=== PATIENT | male | born 1945 | race Caucasian/White ===

== ENCOUNTER 2021-04-26 13:43 | Inpatient (IN) | payer OTHER ==
[~2021-04-26] VITALS: Ht 175.3 cm; Wt 80.7 kg
[2021-04-26 14:21] LABS: BASOPHILS # (AUTO) 0.1 K/uL (0.0-0.2); BASOPHILS % (AUTO) 1.3 % (0.0-2.0); EOSINOPHILS % (AUTO) 0.6 % (0.0-6.0); HEMATOCRIT 45 % (39-51); HEMOGLOBIN 14.8 g/dL (13.5-17.5); LYMPHOCYTES # (AUTO) 0.6 K/uL (0.8-4.8); LYMPHOCYTES % (AUTO) 11.6 % (20.0-44.0); MEAN CORPUSCULAR HGB CONC 33 g/dl (31.0-36.0); MEAN CORPUSCULAR VOLUME 102 fL (80-96); MONOCYTES # (AUTO) 0.3 K/uL (0.1-1.30); NEUTROPHILS # (AUTO) 3.8 K/uL (1.8-8.9); NEUTROPHILS % (AUTO) 80.5 % (43.0-81.0); PLATELET COUNT (AUTO) 131 K/uL (150-450); RED BLOOD CELL COUNT(AUTO) 4.39 MIL/uL (4.5-6.0); WHITE BLOOD COUNT (AUTO) 4.7 K/uL (4.3-11.0)
[2021-04-26] MEDS ORDERED: Thiamine 100 MG in IV D5W 50 ML IV SCH (14:30)
[2021-04-26 14:31] LABS: CALCIUM, SERUM 8.2 mg/dL (8.5-10.1); CARBON DIOXIDE 23 mmol/L (21-32); CHLORIDE 105 mmol/L (98-107); CREATININE 0.7 mg/dL (0.6-1.3); GLUCOSE 86 mg/dL (74-106); POTASSIUM 3.8 mmol/L (3.5-5.1); SODIUM SERUM 142 mmol/L (136-145); UREA NITROGEN, BLOOD 10 mg/dL (7-18)
[2021-04-26 14:38] LABS: ALANINE AMINOTRANSFERASE 112 U/L (12-78); ALBUMIN 3.9 g/dL (3.4-5.0); ALCOHOL, BLOOD 343 mg/dL (0-0); ALKALINE PHOSPHATASE 159 U/L (46-116); ASPARTATE AMINOTRANSFERASE 148 U/L (15-37); BILIRUBIN,DIRECT 0.2 mg/dL (0.0-0.2); BILIRUBIN,TOTAL 0.5 mg/dL (0.2-1.0); TOTAL PROTEIN, SERUM 7.6 g/dL (6.4-8.2)
[2021-04-26 14:39] LABS: ACETAMINOPHEN 0 ug/ml (10-30)
[2021-04-26 14:44] LABS: BILIRUBIN,URINE NEGATIVE (NEGATIVE); COLOR,URINE YELLOW (YELLOW); LEUKOCYTE ESTERASE ,URINE NEGATIVE (NEGATIVE); NITRITE, URINE NEGATIVE (NEGATIVE); PROTEIN,URINE NEGATIVE (NEGATIVE); UGLUCOSE NEGATIVE (NEGATIVE); UROBILINOGEN,URINE 0.2 EU/dL (0.2)
[2021-04-26 14:51] LABS: RBC,URINE 0-2 /HPF (0-2)
[2021-04-26 14:52] LABS: BACTERIA,URINE Few /HPF (None Seen); SQUAMOUS EPITHELIAL CELL,UR Few /HPF (None Seen); WBC,URINE 0-2 /HPF (0-3)
--- NOTE | 2021-04-26 14:58 | NUR ---
ALEX AND [employer] FROM PT'S HOME TO ER BED 12.AWKAE, ALERT BUT INTOXICATED SMELLS OF ALCOHOL. BROUGHT IN ON A 5150 HOLD FOR GRAVE DISABILITY AND DANGER TO HIMSELF. [T HAS BEEN DRINKING ALOT AND A POINT WHERE HE GET INJURED AND OBTAINED A WOUND ON HIS RFA. PT WAS ALSO REPORTED BEING DEPRESSED AND HURTING HIMSELF BY HITTING HIS HEAD. PT IS COOPERATIVE AND COMPLAINT.
--- NOTE | 2021-04-26 15:53 | NUR ---
covid negative per lab
--- NOTE | 2021-04-26 16:03 | NUR ---
CALL FROM MARGOT DALEY, UNABLE TO ADMIT AT THIS TIME BECAUSE OF LACK OF SITTER
[2021-04-26] MEDS ORDERED: IV NS 0.9% 1,000 ML IV SCH (16:30)
[2021-04-26] MEDS ORDERED: MAG HYDROX/AL HYDROX/SIMETH 30 ML UDC PO PRN (16:30)
[2021-04-26] MEDS ORDERED: ZOLPIDEM TARTRATE 5 MG TABLET PO PRN (16:30)
[2021-04-26] MEDS ORDERED: MAGNESIUM HYDROXIDE 30 ML UDC PO PRN (16:30)
[2021-04-26] MEDS ORDERED: ONDANSETRON HCL/PF 4 MG/2 ML VIAL IVP PRN (16:30)
[2021-04-26] MEDS ORDERED: ACETAMINOPHEN 325 MG TABLET PO PRN (16:30)
[2021-04-26] MEDS ORDERED: PHARMACY ADD 1 AMP MVI TO IVF DAILY ONE BAG XX PRN (16:30)
[2021-04-26] MEDS ORDERED: Z GUARD REMEDY 2 OZ OINT TP PRN (16:30)
--- NOTE | 2021-04-26 19:08 | NUR ---
BED 652-1
--- NOTE | 2021-04-26 19:50 | NUR ---
REPORT GIVEN TO MAAME FOR ANGELA
[2021-04-26 20:00] VITALS: BP_SYST 145; BP_SYST 188; BP_DIAS 48; BP_DIAS 95
--- NOTE | 2021-04-26 20:19 | NUR ---
[facility] AT BEDSIDE W/ ACLS PROTOCOL. NAD NOTED DURING TRANSPORT. PT AMBULATED TO BE W/ SBA ASSIST TO THE BED FROM THE [facility]
[2021-04-26] MEDS ORDERED: Folic acid 1 MG in IV D5W 50 ML IV SCH (21:00)
[2021-04-26] MEDS ORDERED: MVI ADULT 10ML VIAL = 1AMP 10 ML in IV NS 0.9% 1,000 ML IV ONE (21:00)
[2021-04-26] MEDS ORDERED: CLONIDINE HCL 0.1 MG TABLET PO PRN (21:00)
--- NOTE | 2021-04-26 21:55 | NUR ---
MAGNETIC TAPE WINDER NOTES PT ARRIVED TO UNIT ACCOMPANIED BY RN AND EMT VIA GURNEY PT ABLE TO AMBULATE TO BED WITH SOME STAND BY ASSISTANCE. PT A/0 X2-3 PT IN NO DISTRESS OR PAIN AT THIS TIME. PT ABLE TO MAKE NEEDS KNOWN. PT HAS IV ACCES ON THE R HAND 20 G RUNNING NS WITH MINERALS @ 100 ML/HR. PT HAS BRUISE ON THE RIGHT FOREARM AND A WOUND ON THE LEFT FOREARM DRESSING WAS ON THE WOUND PICTURES TAKEN AND WOUND RE DRESSED. PT HAS BILATERAL FOOT NON PITTING EDEMA. PT ORIENTED TO ROOM AND UNIT. SAFETY MEASURES FOLLOWED BED ON LOW POSITION LOCKED. HOB ELEVATED, PT HAS SITTER AT BEDSIDE. PT ON A 5150 HOLD PLACED BY [employer] FOR GRAVE DISABILITY AND DANGER TO SELF. PT IS VERBALIZING SADNESS AT LOSING 3 FAMILY MEMBERS EXPRESSES FEELING LONELY AND NOT WANTING TO BE ALONE. PT REPORTED USE OF ALCOHOL DAILY 1L A DAY FOR THE PAST 2 YEARS. WILL CONTINUE TO MONITOR Q15 CLOSELY WITH THE HELP OF NURSING STAFF.
[2021-04-26 22:00] VITALS: BP 188/95
--- NOTE | 2021-04-26 22:00 | NUR ---
CHIEF PASSENGER SHIP STEWARD/STEWARDESS NOTES PT BLOOD PRESSURE SBP 188/95 DENTAL FINANCIAL COORDINATOR MD MADE AWARE RECEIVE ORDERS NOTED AND CARRIED OUT.
[2021-04-27] VITALS (7 sets, daily range): BP systolic 131–169; BP diastolic 46–85
[2021-04-27] MEDS: LORAZEPAM INJ 2 MG/ML VIAL IV PRN ×2 (02:50→05:20)
[2021-04-27] MEDS: CLONIDINE HCL 0.1 MG TABLET PO PRN (05:58)
--- NOTE | 2021-04-27 06:46 | NUR ---
HOME ATTENDANT NOTES PT A/0 X2-3 PT IN NO DISTRESS OR PAIN AT THIS TIME. PT ABLE TO MAKE NEEDS KNOWN. PT HAS IV ACCES ON THE R HAND 20 G RUNNING NS WITH MINERALS @ 100 ML/HR. PT HAS BRUISE ON THE RIGHT FOREARM AND A WOUND ON THE LEFT FOREARM DRESSING INTACT. PT HAS BILATERAL FOOT NON PITTING EDEMA. SAFETY MEASURES FOLLOWED BED ON LOW POSITION LOCKED. HOB ELEVATED, PT HAS SITTER AT BEDSIDE. PT ON A 5150 HOLD PLACED BY [employer] FOR GRAVE DISABILITY AND DANGER TO SELF. PT HAS NOT VERBALIZED SI/HI FOR THE REST OF THE SHIFT. Q15 MIN PT CHECKS DONE WITH HELP OF STAFF. WILL ENDORSE CRE TO DAY SHIFT NURSE.
[2021-04-27 07:09] LABS: BASOPHILS % (AUTO) 0.4 % (0.0-2.0); EOSINOPHILS % (AUTO) 0.1 % (0.0-6.0); HEMATOCRIT 39 % (39-51); LYMPHOCYTES # (AUTO) 0.2 K/uL (0.8-4.8); LYMPHOCYTES % (AUTO) 5.7 % (20.0-44.0); MEAN CORPUSCULAR HGB CONC 34 g/dl (31.0-36.0); MEAN CORPUSCULAR VOLUME 101 fL (80-96); MONOCYTES # (AUTO) 0.2 K/uL (0.1-1.30); MONOCYTES % (AUTO) 4.9 % (2.0-12.0); NEUTROPHILS # (AUTO) 3.6 K/uL (1.8-8.9); NEUTROPHILS % (AUTO) 88.9 % (43.0-81.0); PLATELET COUNT (AUTO) 91 K/uL (150-450); RED BLOOD CELL COUNT(AUTO) 3.83 MIL/uL (4.5-6.0)
[2021-04-27 07:25] LABS: CALCIUM, SERUM 8.1 mg/dL (8.5-10.1); CREATININE 0.6 mg/dL (0.6-1.3); MAGNESIUM 1.4 mg/dL (1.8-2.4); PHOSPHORUS 3.3 mg/dL (2.5-4.9); POTASSIUM 3.7 mmol/L (3.5-5.1)
--- NOTE | 2021-04-27 07:45 | NUR ---
TELE/RN OPENING NOTES RECEIVED PATIENT ON BED SLEEPING EASILY AROUSAL BY NAME AND LIGHT TOUCH. ALERT AND ORIENTED X 2-3. PATIENT IS IN ROOM AIR SATURATING WELL. PATIENT IN NO APPARENT RESPIRATORY DISTRESS NOTED AT THIS TIME. TELE MONITOR READING SINUS RHYTHM 67 BPM. NO COMPLAINED OF PAIN AT THIS TIME. WILL CONTINUE TO MONITOR.
[2021-04-27] MEDS: Magnesium 1GM/D5W 100ML PREMIX 100 ML IV SCH ×4 (08:58→12:33)
[2021-04-27] MEDS: IV NS 0.9% 1,000 ML IV PRN (09:02)
--- NOTE | 2021-04-27 10:46 | NUR ---
TELE/RN NOTES DR. REBOLLEDO ORDER NPO EXCEPT MEDICATION. NOTED AND CARRIED OUT.
[2021-04-27] MEDS: CHLORDIAZEPOXIDE HCL 5 MG CAPSULE PO SCH ×3 (10:50→16:41)
[2021-04-27] MEDS ORDERED: Thiamine 100 MG in IV D5W 50 ML IV SCH ×2 (14:00→15:00)
--- NOTE | 2021-04-27 14:46 | NUR ---
SS consult: SS Consul for ETOH abuse. The pt. is a 76-year-old male on a 5150 hold for DTS started on 04/26/2021 at 1305. Psych consult ordered. Per EMR, pt. was BIBRA after pt. was trying to find his gun to shoot himself. TIARRA met with pt. bedside. The pt. is A&O X 4. Pt. appears unkempt with dysphoric mood and depressed affect. TIARRA explored pt.s drinking habits. Pt. presents guarded and only wanting to provide limited information. Pt. stated that he began drinking heavily after he got out of the [employer]. Per pt. he currently drinks about 5-6 drinks in the morning and 10 drinks at night. Per pt. his drink of choice is Vodka, Beer, or wine. Pt. denies drug use. TIARRA explored pt.s mental health HX. Pt. denies Hx. of mental illness. pt. denies psychotropic medications. Pt. denies current SI/HI and denies current hallucinations. TIARRA provided pt. with alcohol abuse resources (rehab Tx programs) and pt. accepted resources. Pt. states his support system is his bro-in-law, Collins and could not provide contact info. Pt. states he lives alone at home [[address] [facility] [address]; [phone]]. Pt. stated he is , however, then stated lived elsewhere and refused to provide wifes information. SW will be available as needed. TIARRA provided pt. with the following mental health and addiction resources: ADDICTION RESOURCES For Drugs and Alcohol [facility] Substance Abuse Helpline([facility])-[facility] Outpatient treatment, residential treatment, recovery support for youth and adults [facility] www.actionfamilycounseling.pbsi [facility] Teen programs for drug/alcohol education and support Juhi Chahal Wilcox. Program for adults, sliding scale provides support and education [facility] www.Corimmun.org [place]; Outpatient/residential treatment programs; transition to sober living [facility] www.cri-help.org [place]; Outpatient and residential treatment programs; transition to sober living [facility] Abuse Recovery Mert Tavarez; Outpatient education and supportive programs for teens and adults [facility] www.oasiswomensrecovery.org [place]; Residential treatment and work program for females only [facility] [place] www.[facility].Loandesk [place]: Outpatient/residential treatment program for teens and young adults [facility] www.lifepoint health.org [place], inpatient, outpatient for adults and youth [facility], [facility]. [place]; Outpatient programs and referrals to community residential programs. Alcoholics Anonymous -SFV information and meeting and schedules www.aa-intergroup.org Fj-Qnmc-Uyhhozh https://al-anon.org/ [place] support groups for family of alcoholics. Marijuana Anonymous www.madistrict6.org -sfv listing of meetings Narcotics Anonymous www.na.org SOBER LIVING RESOURCES The Sober Living Network www.soberhousing.net A non-profit agency that provides resources to recovery and sober living homes throughout [facility] Sober Living Homes: A Work in [facility] Recovery Advocates, [place] [facility] Mert Tavarez Womens Sober Living Homes: [facility] [phone] [place], [place] [facility] Coed Sober Living Homes: [facility] Counseling--Outpatient [facility] [address] [facility] [place], [place] [address] (Specializes in in-depth psychotherapy for emotional distress: anxiety, depression, interpersonal conflicts, life transitions, childhood abuse) [facility] [address] [place] [address] (Assist with solving problem marital difficulties, separation & divorce, aging parents, & grief, chronic & terminal illness) [facility] [address] [place] [address] (Deal with loss & grief, anxiety, marital difficulties) Homebound/Mental Health Services [address] [facility] [address] [place] [address] (Provide in-home mental services to people who are incapable of leaving their homes) Organization for Needs of the Elderly Senior Service/Resource Center [address] [place] [address] [facility] [address] [place] [address] PSYCHIATRIC OUTPATIENT SERVICES [facility] Partial Hospitalization and Intensive Outpatient Program (Managed Care and [place] Only)[address] [facility] [phone] [facility] Partial Hospitalization and Outpatient Goiujlo[address] [facility] [address] [place], [place] [phone] [facility] Partial Hospitalization and Outpatient Izviots[address] [place], [place] [phone] [facility] [place] Soq[address] [facility] [address] [place], [place] [phone] [facility] Partial Hospitalization and Outpatient Uvijzzs22512 [facility]Texas [facility] [place], [phone] Crisis and Hotline Telephone Numbers 24-Hour service unless stated [place] Crisis Hotlines: [place] Mental Health/Crisis Line........[phone] Suicide Prevention Center (24 Hours).......[phone] Suicide Prevention Crisis Center.......[phone] (24 Hours) Assaults Against Women Hotline.........176.832.4723 (24 Hours -- [facility]) Women and Children Crisis Usp...........[phone] (24 Hours) Child Abuse Hotline............599.484.6931 [facility] Childrens Services R[facility] Treatment [facility] (24 Hours)..........[phone] Alcoholics Anonymous (24 Hours)..........[phone] Cocaine Anonymous (24 Hours)............[phone] Narcotics Anonymous (24 Hours)..........[phone] [facility] [address] [place] [address] Mental Health Services [facility] [address] [place] [address] Services: Outpatient therapy for children, teens, young adults, adults, older adults, and families; Psychiatric services, medication support Crisis and Hotline Telephone Numbers 24-Hour service unless stated [place] Crisis Hotlines: [facility] Mental Health/Crisis Line........[phone] Suicide Prevention Center (24 Hours).......[phone] Suicide Prevention Crisis Center.......[phone] (24 Hours) Alcoholics Anonymous (24 Hours)..........915.254.4429 National Crisis Hotlines: Alcohol and Drug Helpline - Provides referrals to local facilities where adolescents and adults can seek help. Brief intervention. ROSARIO Helpline [facility] [place] for the Mentally Ill 1-247-036-LTFY National Youth Crisis Hotline [place] [facility]. Provides free information on specific disorders, referral directory to mental health providers, national directory of local mental health associations (M-F, 9-5 EST) National [place] of Mental Health Information Line: Provide sinformation and literature on mental illness by disorder-for professionals and general public.
[2021-04-27] MEDS ORDERED: Folic acid 1 MG in IV D5W 50 ML IV SCH (15:00)
[2021-04-27] MEDS: SERTRALINE HCL 25 MG TABLET PO SCH (16:41)
--- NOTE | 2021-04-27 18:58 | NUR ---
TELE/RN OPENING NOTES PATIENT IS ON BED AWAKE ALERT AND ORIENTED X4. PATIENT IS ON ROOM AIR SATURATING WELL. PATIENT IN NO APPARENT RESPIRATORY DISTRESS NOTED. NO COMPLAINED OF PAIN AT THIS TIME. TELE MONITOR READING SINUS RHYTHM SINUS WITH PVC AND BBB 65 BPM. IV ACCESS AT LEFT HAND #20 G WITH IV FLUID OF NS1L AT 100ML/HR ON AND INFUSING WELL. SEEN AND EXAMINED BY MD WITH ORDERS MADE AND CARRIED OUT. ALL DUE MEDICATIONS WAS GIVEN. SAFETY PRECAUTIONS WAS IN PLACED. BED IN LOWEST POSITION AND LOCKED. MIXER DRY FOOD PRODUCTS UP X2. CALL LIGHT WITHIN REACH. WILL ENDORSED TO PLASTERING SUPERVISOR FOR ANGELA.
--- NOTE | 2021-04-27 20:05 | NUR ---
MS/TELE/RN RECEIVED PATIENT SITTING AT EDGE OF BED WITH SITTER AT BEDSIDE, PATIENT IS AWAKE, ALERT, ORIENTED, CALM AND COMFORTABLE, NO DISTRESS NOTED, WILL MONITOR FOR SAFETY.
[2021-04-28] VITALS: BP 157/85
--- NOTE | 2021-04-28 01:43 | NUR ---
MS/TELE/RN PATIENT IS SLEEPING AT THIS TIME, APPEAR COMFORTABLE, NO SIGNS OF DISTRESS NOTED, SITTER AT BEDSIDE, WILL CONTINUE TO MONITOR.
[2021-04-28] MEDS: IV NS 0.9% 1,000 ML IV PRN ×2 (03:14→14:40)
[2021-04-28 04:00] VITALS: BP 158/82
[2021-04-28 06:17] LABS: BASOPHILS % (AUTO) 0.5 % (0.0-2.0); EOSINOPHILS % (AUTO) 0.9 % (0.0-6.0); HEMATOCRIT 37 % (39-51); HEMOGLOBIN 12.3 g/dL (13.5-17.5); LYMPHOCYTES # (AUTO) 0.3 K/uL (0.8-4.8); LYMPHOCYTES % (AUTO) 8.6 % (20.0-44.0); MEAN CORPUSCULAR HGB CONC 34 g/dl (31.0-36.0); MEAN CORPUSCULAR VOLUME 102 fL (80-96); MONOCYTES # (AUTO) 0.3 K/uL (0.1-1.30); PLATELET COUNT (AUTO) 78 K/uL (150-450); RED BLOOD CELL COUNT(AUTO) 3.61 MIL/uL (4.5-6.0); WHITE BLOOD COUNT (AUTO) 3.7 K/uL (4.3-11.0)
[2021-04-28 06:32] LABS: CALCIUM, SERUM 7.8 mg/dL (8.5-10.1); CREATININE 0.6 mg/dL (0.6-1.3); MAGNESIUM 1.9 mg/dL (1.8-2.4); POTASSIUM 3.4 mmol/L (3.5-5.1)
--- NOTE | 2021-04-28 06:39 | NUR ---
MS/TELE/RN PATIENT IS AWAKE, CALM AND COMFORTABLE, NO DISTRESS NOTED, SITTER AT BEDSIDE, ALL NEEDS ATTENDED AT THIS TIME, WILL CONTINUE TO MONITOR.
--- NOTE | 2021-04-28 08:00 | NUR ---
CORRECTIONAL CORPORAL OPENING NOTES RECEIVED PATIENT LYING IN BED, AWAKE. A/O X3. SITTER AT BEDSIDE. STABLE ON ROOM AIR - NO SOB OR DISTRESS NOTED. PATIENT STATES NO PAIN AT THIS TIME. TELE MONITOR READS SINUS RHYTHM WITH PVC. IV ACCESS TO LEFT HAND #20 - RUNNING NS @ 100ML/HR. SAFETY PRECAUTIONS IN PLACE. CALL LIGHT WITHIN REACH. WILL CONTINUE TO MONITOR.
[2021-04-28] MEDS: POTASSIUM CL. PREMIX PERIPHER. 50 ML IV SCH ×2 (08:46→09:36)
[2021-04-28] MEDS: CHLORDIAZEPOXIDE HCL 5 MG CAPSULE PO SCH ×3 (08:47→16:42)
[2021-04-28] MEDS: THIAMINE HCL 100 MG TABLET PO SCH (10:35)
[2021-04-28] MEDS: FOLIC ACID 1 MG TABLET PO SCH (10:35)
--- NOTE | 2021-04-28 11:31 | NUR ---
WOUND CARE CONSULT: PT PRESENTS WITH RT ARM SKIN TEAR AND BILATERAL ARM DISCOLORATION. RECOMMENDATIONS MADE FOR SKIN PROTECTION AND WOUND CARE. DISCUSSED WITH NURSING STAFF. IN AGREEMENT WITH PLAN OF CARE. Addendum: 04/28/21 at 1131 by JEAN CLAUDE KHAN WNDNU Amended: Links added.
[2021-04-28] MEDS: SERTRALINE HCL 25 MG TABLET PO SCH (16:42)
--- NOTE | 2021-04-28 18:42 | NUR ---
GLYCERIN SUPERVISOR CLOSING NOTES PATIENT CURRENTLY LYING IN BED, AWAKE. A/O X3. SITTER AT BEDSIDE. STABLE ON ROOM AIR - NO SOB OR DISTRESS NOTED. PATIENT STATES NO PAIN AT THIS TIME. TELE MONITOR READS SINUS RHYTHM WITH PVC. IV ACCESS TO LEFT HAND #20 - RUNNING NS @ 100ML/HR. PATIENT TO DISCHARGE TO GPS TOMORROW. SAFETY PRECAUTIONS IN PLACE. CALL LIGHT WITHIN REACH. WILL ENDORSE TO WORKFORCE DEVELOPMENT PROGRAM DIRECTOR NURSE FOR ANGELA.
--- NOTE | 2021-04-28 19:53 | NUR ---
MS RN OPENING PATIENT IN BED. A/OX3. SITTER AT THE BED SIDE. NO S/S OF DISTRESS. NO C/O PAIN AT THIS TIME. IV NS RUNNING @100ML/HR. CHAUFFEUR MOTORBUS READING SR 60'S WITH PVC AND BUNDLE BRANCHES. SAFETY IN PLACE: BED IN LOWEST, LOCKED POSITION; CALL LIGHT WITHIN REACH. WILL CONTINUE TO MONITOR.
[2021-04-28 20:00] VITALS: BP 171/69
[2021-04-28] MEDS: CLONIDINE HCL 0.1 MG TABLET PO PRN (20:51)
--- NOTE | 2021-04-28 20:56 | NUR ---
FITTINGS TIGHTENER NOTES PATIENT BP 171/69 ON RE-CHECK. GIVEN CATAPRES 0.2 MG PRN. WILL REASSESS.
[2021-04-29] VITALS: BP 162/94
[2021-04-29] MEDS: LORAZEPAM INJ 2 MG/ML VIAL IV PRN ×2 (00:06→09:45)
--- NOTE | 2021-04-29 00:06 | NUR ---
CULINARY INSTRUCTOR NOTES PATIENT GIVEN LORAZEPAM 1ML AT THIS TIME. PATIENT VERY ANXIOUS, SHAKY, RESTLESS. WILL CONTINUE TO MONITOR. V/S STABLE.
--- NOTE | 2021-04-29 01:02 | NUR ---
telemetry tech notes patient given ambien at this time per nursing clinical assessment.
[2021-04-29] MEDS: IV NS 0.9% 1,000 ML IV PRN ×2 (01:45→17:20)
[2021-04-29 04:00] VITALS: BP 166/74
--- NOTE | 2021-04-29 07:04 | NUR ---
MS RN CLOSING NOTE PATIENT IN BED. A/OX3. TIMES OF CONFUSION/ COMBATIVE. NO S/S OF APPARENT DISTRESS. IV NS RUNNING @75ML/HR. ALL NEEDS ATTENDED. ALL SCHED MEDS ADMINISTERED. CALL LIGHT WITHIN REACH. WOUND TREATMENT DONE AND DRESSING CHANGED. NO SIGNIFICANT CHANGE SINCE LAST SHIFT. WILL ENDORSE CARE TO AM SHIFT RN.
[2021-04-29 07:07] LABS: BASOPHILS % (AUTO) 0.3 % (0.0-2.0); EOSINOPHILS % (AUTO) 0.3 % (0.0-6.0); HEMATOCRIT 41 % (39-51); HEMOGLOBIN 13.8 g/dL (13.5-17.5); LYMPHOCYTES # (AUTO) 0.2 K/uL (0.8-4.8); LYMPHOCYTES % (AUTO) 3.5 % (20.0-44.0); MEAN CORPUSCULAR HGB CONC 33 g/dl (31.0-36.0); MEAN CORPUSCULAR VOLUME 102 fL (80-96); MONOCYTES # (AUTO) 0.5 K/uL (0.1-1.30); MONOCYTES % (AUTO) 8.3 % (2.0-12.0); NEUTROPHILS # (AUTO) 5.6 K/uL (1.8-8.9); NEUTROPHILS % (AUTO) 87.6 % (43.0-81.0); PLATELET COUNT (AUTO) 90 K/uL (150-450); RED BLOOD CELL COUNT(AUTO) 4.06 MIL/uL (4.5-6.0); WHITE BLOOD COUNT (AUTO) 6.4 K/uL (4.3-11.0)
[2021-04-29 07:38] LABS: CALCIUM, SERUM 8.4 mg/dL (8.5-10.1); CREATININE 0.8 mg/dL (0.6-1.3); POTASSIUM 3.5 mmol/L (3.5-5.1)
[2021-04-29 07:55] LABS: BAND % (MANUAL) 1 % (0.0-5.0); LYMPHOCYTES % (MANUAL) 2 % (16-48); MONOCYTES % (MANUAL) 3 % (0-11.0); NEUTROPHILS % (MANUAL) 94 (42-76)
[2021-04-29] MEDS: CHLORDIAZEPOXIDE HCL 5 MG CAPSULE PO SCH ×3 (09:45→16:57)
[2021-04-29] MEDS: FOLIC ACID 1 MG TABLET PO SCH (09:46)
[2021-04-29] MEDS: THIAMINE HCL 100 MG TABLET PO SCH (09:46)
--- NOTE | 2021-04-29 12:47 | NUR ---
VSS, Pt SR with BBB on tele monitor. Pt has had very noticeable tremors and hallucinations due to ETOH withdrawal. Ativan given per MD orders. Pt resting quietly now.
[2021-04-29] MEDS: SERTRALINE HCL 25 MG TABLET PO SCH (16:57)
--- NOTE | 2021-04-29 17:59 | NUR ---
RN CLOSING NOTE PATIENT IN BED RESTING, NO S/S OF DISTRESS OR SI/HI OBSERVED, SITTER AT BEDSIDE. RESPIRATORY EVEN AND UNLABORED ON ROOM AIR. SKIN IS WARM TO TOUCH KEEP CLEAN/DRY INTACT IV SITE. PATIENT NPO EXCEPT MEDS AND PATIENT TOOK ALL DUE MEDICATIONS WITH COMPLIANCE. KEPT ELEVATED HOB FOR ENSURE AIRWAY AND ASPIRATION PRECAUTION, ALSO LOWEST BED POSITION FOR SAFETY. CALL LIGHT WITHIN REACH, WILL ENDORSE HOUSEKEEPER CAREGIVER.
--- NOTE | 2021-04-29 19:58 | NUR ---
RN NOTES RECEIVED PATIENT IN BED, ALERT/ORIENTED X 3, ROOM AIR, NO COMPLAIN OF PAIN, LETHARGIC, ANSWERS TO SIMPLE QUESTIONS, NPO EXCEPT MEDS, GENERALIZED BUE ECCHYMOSIS, BEING MONITORED FOR ALCOHOL WITHDRAWAL, SITTER AT THE BEDSIDE FOR SAFETY, WILL CONTINUE TO MONITOR.
[2021-04-29 20:00] VITALS: BP 165/88
[2021-04-30 01:01] VITALS: BP 161/78
[2021-04-30] MEDS: CLONIDINE HCL 0.1 MG TABLET PO PRN (01:06)
[2021-04-30 05:03] VITALS: BP 160/92
--- NOTE | 2021-04-30 06:48 | NUR ---
RN NOTES ALERT/ORIENTED X3, ROOM AIR, DENIES PAIN AT THIS TIME, LETHARGIC, AROUSEABLE, SBP 160, GIVEN CLONIDINE X1, TO TRANSFER TO GPS, SITTER AT THE BEDSIDE FOR SAFETY.
--- NOTE | 2021-04-30 07:10 | NUR ---
CUSTOMER SERVICE SALES ASSOCIATE OPENING PATIENT IN BED. A/OX3. SITTER AT THE BED SIDE. NO S/S OF DISTRESS. NO C/O PAIN AT THIS TIME. IV NS RUNNING @100ML/HR. SAFETY IN PLACE: BED IN LOWEST, LOCKED POSITION; CALL LIGHT WITHIN REACH. WILL CONTINUE TO MONITOR.
[2021-04-30 07:20] LABS: BASOPHILS % (AUTO) 0.3 % (0.0-2.0); EOSINOPHILS % (AUTO) 1.6 % (0.0-6.0); HEMATOCRIT 41 % (39-51); HEMOGLOBIN 13.6 g/dL (13.5-17.5); LYMPHOCYTES # (AUTO) 0.4 K/uL (0.8-4.8); LYMPHOCYTES % (AUTO) 5.3 % (20.0-44.0); MEAN CORPUSCULAR HGB CONC 34 g/dl (31.0-36.0); MEAN CORPUSCULAR VOLUME 103 fL (80-96); MONOCYTES # (AUTO) 0.6 K/uL (0.1-1.30); MONOCYTES % (AUTO) 9.3 % (2.0-12.0); NEUTROPHILS # (AUTO) 5.6 K/uL (1.8-8.9); NEUTROPHILS % (AUTO) 83.5 % (43.0-81.0); PLATELET COUNT (AUTO) 92 K/uL (150-450); RED BLOOD CELL COUNT(AUTO) 3.95 MIL/uL (4.5-6.0); WHITE BLOOD COUNT (AUTO) 6.7 K/uL (4.3-11.0)
[2021-04-30 07:28] LABS: CALCIUM, SERUM 7.9 mg/dL (8.5-10.1); CREATININE 0.7 mg/dL (0.6-1.3); POTASSIUM 3.3 mmol/L (3.5-5.1)
[2021-04-30] MEDS: THIAMINE HCL 100 MG TABLET PO SCH (09:04)
[2021-04-30] MEDS: FOLIC ACID 1 MG TABLET PO SCH (09:04)
[2021-04-30] MEDS: CHLORDIAZEPOXIDE HCL 5 MG CAPSULE PO SCH ×3 (09:04→17:30)
[2021-04-30] MEDS: IV NS 0.9% 1,000 ML IV PRN ×2 (09:49→20:56)
[2021-04-30] MEDS ORDERED: POTASSIUM CHLORIDE 20 MEQ TAB.PRT.SR PO SCH (10:30)
[2021-04-30] MEDS: SERTRALINE HCL 25 MG TABLET PO SCH (17:30)
--- NOTE | 2021-04-30 19:00 | NUR ---
MS RN CLOSING NOTE PATIENT IN BED. A/OX3. SITTER AT THE BED SIDE. NO S/S OF DISTRESS. NO C/O PAIN AT THIS TIME. IV NS RUNNING @100ML/HR. SAFETY IN PLACE: BED IN LOWEST, LOCKED POSITION; CALL LIGHT WITHIN REACH. WILL ENDORSE PATIENT FOR CONTINUITY OF CARE
--- NOTE | 2021-04-30 19:40 | NUR ---
MS/RN OPENING NOTE RECEIVED PATIENT SLEEPING IN BED. ALERT AND ORIENTED X 2. ABLE TO MAKE NEEDS KNOWN. NO S/SX OF PAIN NOTED AT THIS TIME. CONTINUES ON ROOM AIR WITH NO S/SX OF RESPIRATORY DISTRESS NOTED. IV ACCESS TO LEFT FOREARM #22G INTACT AND PATENT. CONTINUES ON IV NS 0.9% @ 100ML/HR. PATIENT HAS 1 TO 1 SITTER. CALL LIGHT WITHIN REACH. ASPIRATION, FALL AND SAFETY PRECAUTIONS MAINTAINED. WILL CONTINUE TO MONITOR.
[2021-04-30 20:00] VITALS: BP_SYST 156; BP_SYST 174; BP_DIAS 65
--- NOTE | 2021-04-30 22:02 | NUR ---
MS/RN NOTE PATIENT HAS BEEN NPO EXCEPT MEDS SINCE ADMISSION ON 04/26. ASPIRATION PRECAUTIONS IN PLACE. NOTIFIED LABORER PULLET FARM PLYWOOD LAYUP LINE CORE LAYER MAYELA CARREON WITH NEW ORDER FOR SPEECH EVAL IN AM. ORDER IMPUTED AND CARRIED OUT.
[2021-05-01] MEDS: IV NS 0.9% 1,000 ML IV PRN (05:52)
[2021-05-01 06:37] LABS: BASOPHILS % (AUTO) 0.3 % (0.0-2.0); EOSINOPHILS % (AUTO) 1.6 % (0.0-6.0); HEMATOCRIT 44 % (39-51); HEMOGLOBIN 14.5 g/dL (13.5-17.5); LYMPHOCYTES # (AUTO) 0.4 K/uL (0.8-4.8); LYMPHOCYTES % (AUTO) 7.4 % (20.0-44.0); MEAN CORPUSCULAR HGB CONC 33 g/dl (31.0-36.0); MEAN CORPUSCULAR VOLUME 104 fL (80-96); MONOCYTES # (AUTO) 0.6 K/uL (0.1-1.30); MONOCYTES % (AUTO) 11.1 % (2.0-12.0); NEUTROPHILS # (AUTO) 4.7 K/uL (1.8-8.9); NEUTROPHILS % (AUTO) 79.6 % (43.0-81.0); PLATELET COUNT (AUTO) 101 K/uL (150-450); RED BLOOD CELL COUNT(AUTO) 4.22 MIL/uL (4.5-6.0); WHITE BLOOD COUNT (AUTO) 5.8 K/uL (4.3-11.0)
--- NOTE | 2021-05-01 06:40 | NUR ---
MS/RN CLOSING NOTE PATIENT CURRENTLY SLEEPING IN BED. ALERT AND ORIENTED X 2. ABLE TO MAKE NEEDS KNOWN. NO S/SX OF PAIN NOTED AT THIS TIME. CONTINUES ON ROOM AIR WITH NO S/SX OF RESPIRATORY DISTRESS NOTED. IV ACCESS TO LEFT FOREARM #22G INTACT AND PATENT. CONTINUES ON IV NS 0.9% @ 100ML/HR. PATIENT HAS 1 TO 1 SITTER. CALL LIGHT WITHIN REACH. ASPIRATION, FALL AND SAFETY PRECAUTIONS MAINTAINED. WILL ENDORSE PLAN OF CARE TO ONCOMING SHIFT.
[2021-05-01 07:19] LABS: ALBUMIN 2.9 g/dL (3.4-5.0); BILIRUBIN,TOTAL 1.6 mg/dL (0.2-1.0); CALCIUM, SERUM 8.3 mg/dL (8.5-10.1); CREATININE 0.7 mg/dL (0.6-1.3); MAGNESIUM 1.7 mg/dL (1.8-2.4); POTASSIUM 3.6 mmol/L (3.5-5.1); TOTAL PROTEIN, SERUM 6.1 g/dL (6.4-8.2)
--- NOTE | 2021-05-01 08:04 | NUR ---
m/s press reader: md visit seen and examined by dr. esteban with order to discharge pt to gps unit. pt aware and verbalized understanding. pt remains on 5250. pt still shaking, but less. pt more alert and oriented x3 with forgetfulness. reality orientation provided prn. sitter remains at bedside. will continue to monitor.
[2021-05-01] MEDS ORDERED: Thiamine HCL PO (08:06)
[2021-05-01] MEDS ORDERED: SERT-437 PO ×2 (08:06→13:22)
[2021-05-01] MEDS ORDERED: Folic Acid PO (08:06)
[2021-05-01] MEDS ORDERED: Chlordiazepoxide Hcl PO (08:06)
[2021-05-01 08:27] VITALS: BP 180/94
[2021-05-01] MEDS: CLONIDINE HCL 0.1 MG TABLET PO PRN (08:27)
[2021-05-01] MEDS: FOLIC ACID 1 MG TABLET PO SCH (08:27)
[2021-05-01] MEDS: THIAMINE HCL 100 MG TABLET PO SCH (08:27)
[2021-05-01] MEDS: CHLORDIAZEPOXIDE HCL 5 MG CAPSULE PO SCH (08:27)
[2021-05-01] MEDS: Magnesium 1GM/D5W 100ML PREMIX 100 ML IV SCH ×2 (09:39→10:53)
--- NOTE | 2021-05-01 12:30 | NUR ---
m/s stone fabricator: notes pt unable to sign d'c papers due to hold ([id number]) 2 license staff signed all d'c papers. facesheet given to admitting to admit pt to room 215-1 gps unit. pt has no family given. all valuables returned to pt.
--- NOTE | 2021-05-01 12:40 | NUR ---
m/s maintainer plant: notes report given to portia (katerina) for continuity of care.
--- NOTE | 2021-05-01 12:45 | NUR ---
m/s light rail transit operator: notes h/l removed with tip intact.
--- NOTE | 2021-05-01 13:00 | NUR ---
m/s corporate treasurer: notes brought down to gps unit for geropsych admission via wheelchair with original hold and d'c papers. transfer pt safely from wheelchair to bed.
[2021-05-01] MEDS ORDERED: CLON0.2T PO (13:22)
[2021-05-01] MEDS ORDERED: ACET-868 PO (13:22)
[2021-05-01] MEDS ORDERED: ALLA266C2 TP (13:22)
[2021-05-01] MEDS ORDERED: FOLI0.4T6 PO (13:22)
[2021-05-01] MEDS ORDERED: MAG30ORA PO (13:22)
[2021-05-01] MEDS ORDERED: THIA100T68 PO (13:22)
[2021-05-01] MEDS ORDERED: MAGN400O6 PO (13:22)
[2021-05-01] MEDS ORDERED: ZOLP5TAB8 PO (13:22)
[2021-05-01] MEDS ORDERED: CHLO5CAP3 PO (13:22)
== END 2021-05-01 12:36 | DRG 896 ==
LOC: ER 16:34 → TELE 19:15 → MED 04-30 08:47
PROVIDERS: ADMIT Family Medicine; ATTEND Family Medicine
DX: F10.129 Alcohol abuse with intoxication, unspecified (principal); G93.41 Metabolic encephalopathy; E72.20 Disorder of urea cycle metabolism, unspecified; R45.851 Suicidal ideations; Y90.8 Blood alcohol level of 240 mg/100 ml or more; D69.6 Thrombocytopenia, unspecified; K72.90 Hepatic failure, unspecified without coma; E83.51 Hypocalcemia; F32.9 Major depressive disorder, single episode, unspecified; K70.31 Alcoholic cirrhosis of liver with ascites; D75.89 Other specified diseases of blood and blood-forming organs; I11.0 Hypertensive heart disease with heart failure; I50.9 Heart failure, unspecified; G31.84 Mild cognitive impairment of uncertain or unknown etiology; E83.42 Hypomagnesemia; K76.0 Fatty (change of) liver, not elsewhere classified
CPT/HCPCS: 36415; 71045-TC; 76700-TC; 80048-TC; 80053-TC; 80061-TC; 80076-TC; 81001; 82140-TC; 83735-TC; 84100-TC; 85025-TC; 87081-TC; 93307-TC; C9803; G0378; G0480; J2060; J3411; J3475; J3480; J3490; J7030; J7060

== ENCOUNTER 2021-05-01 13:12 | Inpatient (IN) | payer OTHER ==
[~2021-05-01] VITALS: Ht 175.3 cm; Wt 75.3 kg
[2021-05-01 08:00] VITALS: BP 180/94
[~2021-05-01 13:12] MED LIST: Chlordiazepoxide Hcl PO; Folic Acid PO; SERT-437 PO; Thiamine HCL PO
[2021-05-01] MEDS ORDERED: MAG30ORA PO (13:22)
[2021-05-01] MEDS ORDERED: THIA100T68 PO (13:22)
[2021-05-01] MEDS ORDERED: CLON0.2T PO (13:22)
[2021-05-01] MEDS ORDERED: ZOLP5TAB8 PO (13:22)
[2021-05-01] MEDS ORDERED: FOLI0.4T6 PO (13:22)
[2021-05-01] MEDS ORDERED: ACET-868 PO (13:22)
[2021-05-01] MEDS ORDERED: ALLA266C2 TP (13:22)
[2021-05-01] MEDS ORDERED: SERT-437 PO (13:22)
[2021-05-01] MEDS ORDERED: MAGN400O6 PO (13:22)
[2021-05-01] MEDS ORDERED: CHLO5CAP3 PO (13:22)
[2021-05-01 13:28] VITALS: BP 138/58
[2021-05-01] MEDS ORDERED: BLOOD SUGAR DIAGNOSTIC 1 EACH STRIP IN ONE (13:30)
[2021-05-01] MEDS ORDERED: ACETAMINOPHEN 325 MG TABLET PO PRN ×2 (13:30→21:30)
[2021-05-01] MEDS ORDERED: LORAZEPAM 0.5 MG TABLET PO PRN (13:30)
[2021-05-01] MEDS ORDERED: MAGNESIUM HYDROXIDE 30 ML UDC PO PRN ×2 (13:30→21:30)
[2021-05-01] MEDS ORDERED: ZOLPIDEM TARTRATE 5 MG TABLET PO PRN (13:30)
[2021-05-01] MEDS ORDERED: MAG HYDROX/AL HYDROX/SIMETH 30 ML UDC PO PRN ×2 (13:30→21:30)
--- NOTE | 2021-05-01 13:47 | NUR ---
GPS ADMISSION NOTE: RECEIVED PATIENT 76 Y/O MALE FROM 3W PATIENT ARRIVED ON THIS UNIT AT 1300 VIA WHEELCHAIR ADMITTED ON A 5250 HOLD FOR DTS,GD . PER 5150 HOLD PATIENT PATIENT HAS BEEN INCREASINGLY DEPRESSED HITTING HIMSELF ON HIS HEAD AND WALKING TOWARDS STORAGE .HE STATING BEING GOLDEST CHILD AND SHOULD'VE WENT BEFORE SIBLINGS PATIENT HAS SUICIDAL PLAN WITH INABILITY TO CARE FOR HIMSELF FALLING DUE TO GOING ON BINGE DRINKING . THE 5250 WAS REVIEWED AND THE DOCUMENTATION IN THE 5150 HOLD APPEARS TO REFLECT THE PRESENTATION OF THE PATIENT. UPON FACE TO FACE ASSESSMENT PATIENT IS CURRENTLY LYING IN BED AWAKE, HAS NO S/S OR COMPLAINTS OF PAIN. PATIENT IS DISPLAYING NO S/S OF APPARENT DISTRESS. PATIENT BREATHING IS UNLABORED WITH EQUAL RISE AND FALL OF THE CHEST. PATIENT IS ALERT AND ORIENTATED X 2-3 ON ROOM AIR. PATIENT ASSISTED WITH TURING AND REPOSITIONING Q2HR AND PRN FOR COMFORT AND CIRCULATION. PATIENT HAS NO NEEDS AT THIS TIME. PATIENT DENIES SUICIDE IDEATIONS AND HOMICIDAL IDEATIONS AT THIS TIME.PATIENT DENIES HAVING SI, DENIES SUICIDAL PLAN .DEPRESSED MOOD, ISOLATIVE ,DISHEVELED,AMBULATORY,CONTINENT PATIENT STATED HE WAS DRINKING DAILY ABOUT 1.75 L EVERY 2 DAYS PATIENT IS UNDER THE PSYCHIATRIC CARE OF DR. PRESLEY AND THE MEDICAL CARE OF DR REBOLLEDO PATIENT BELONGINGS WERE INVENTORIED AND CHECKED FOR CONTRABAND. ALL CONTRABAND REMOVED AND STORED IN PATIENT HALLWAY LOCKER. SKIN ASSESSMENT DONE PICTURE PLACED IN THE CHART PATIENTS RIGHTS HANDBOOK, AND ALSO REFUSED TO SIGNS ALL PAPER WORK. PATIENT ORIENTATED TO ROOM, FLOOR, AND STAFF WITH ALL QUESTIONS ANSWERED. PATIENT EDUCATED ON THE USE OF THE CALL DONALDSON. PATIENT BED SIDE RAILS ARE UP X 2 FOR SAFETY. PATIENT BED IS LOCKED, LOW AND I WILL CONTINUE TO MONITOR THIS PATIENT Q 15 MIN WITH THE HELP OF STAFF TO MAINTAIN SAFETY.
[2021-05-01 16:00] VITALS: BP 144/65
[2021-05-01 20:00] VITALS: BP 176/90
--- NOTE | 2021-05-01 20:30 | NUR ---
RN NOTE PATIENT'S BP ELEVATED, BP: 176/90, HR: 67, SPO2: 97%. NOTIFIED VELMA PEDRO TO COMPLETE MED RECON, PATIENT CURRENTLY DOESN'T HAVE ANY BP MEDS. WILL CONTINUE TO MONITOR
[2021-05-01 22:00] VITALS: BP 154/81
--- NOTE | 2021-05-01 22:00 | NUR ---
RN NOTES MED RECON COMPLETED BY VELMA PEDRO. PT NOW HAS CLONIDINE 0.2 MG PRN. PATIENT'S BP NOW 154/81, HR: 58. CLONIDINE NOT GIVEN BECAUSE IT DOESN'T MEET PARAMETERS OF SBP >160. WILL CONTINUE TO MONITOR
[2021-05-02 07:08] LABS: CHOLESTEROL 210 mg/dL (<200); HDL CHOLESTEROL 100 mg/dL (40-60); LDL 92 mg/dL (0-99); TRIGLYCERIDES 52 mg/dL (30-150)
[2021-05-02 07:21] LABS: ALBUMIN 2.7 g/dL (3.4-5.0); BILIRUBIN,TOTAL 1.1 mg/dL (0.2-1.0); CALCIUM, SERUM 8.3 mg/dL (8.5-10.1); CREATININE 0.7 mg/dL (0.6-1.3); POTASSIUM 3.4 mmol/L (3.5-5.1); TOTAL PROTEIN, SERUM 5.9 g/dL (6.4-8.2)
[2021-05-02 08:00] VITALS: BP 166/88
[2021-05-02] MEDS: THIAMINE HCL 100 MG TABLET PO SCH (08:44)
[2021-05-02] MEDS: FOLIC ACID 1 MG TABLET PO SCH (08:44)
[2021-05-02] MEDS ORDERED: CHLORDIAZEPOXIDE HCL 5 MG CAPSULE PO SCH (09:00)
[2021-05-02] MEDS ORDERED: POTASSIUM CHLORIDE 20 MEQ TAB.PRT.SR PO SCH ×2 (09:30→11:00)
[2021-05-02] MEDS ORDERED: hydrOXYzine PAMOATE 25 MG CAPSULE PO PRN (11:00)
[2021-05-02] MEDS ORDERED: CHLORDIAZEPOXIDE HCL 5 MG CAPSULE PO PRN (11:00)
[2021-05-02] MEDS: SERTRALINE HCL 25 MG TABLET PO SCH (13:15)
[2021-05-02 16:00] VITALS: BP 156/87
--- NOTE | 2021-05-02 18:05 | NUR ---
RN NOTES PATIENT RESTING IN BED, A/O X3, ON R/A. SAFETY PRECAUTIONS IN PLACE.
[2021-05-02 20:18] VITALS: BP 154/89
[2021-05-03 08:00] VITALS: BP 164/92
[2021-05-03] MEDS: SERTRALINE HCL 25 MG TABLET PO SCH (08:37)
[2021-05-03] MEDS: THIAMINE HCL 100 MG TABLET PO SCH (08:37)
[2021-05-03] MEDS: FOLIC ACID 1 MG TABLET PO SCH (08:37)
--- NOTE | 2021-05-03 10:00 | NUR ---
Probable Cause Hearing: Pts 5250 hold was upheld for grave disability.
[2021-05-03] MEDS: CLONIDINE HCL 0.1 MG TABLET PO PRN (15:17)
--- NOTE | 2021-05-03 15:21 | NUR ---
RN-CO: CLONIDINE MG PO GIVEN FOR BP 167/112. PT DENIED PAIN AND DISCOMFORTS.
[2021-05-03 16:07] VITALS: BP 167/112
[2021-05-03 19:58] VITALS: BP 142/63
[2021-05-03] MEDS: Z GUARD REMEDY 2 OZ OINT TP PRN (21:44)
[2021-05-04 08:00] VITALS: BP 155/88
[2021-05-04] MEDS: FOLIC ACID 1 MG TABLET PO SCH (08:22)
[2021-05-04] MEDS: THIAMINE HCL 100 MG TABLET PO SCH (08:22)
[2021-05-04] MEDS: SERTRALINE HCL 25 MG TABLET PO SCH (08:22)
[2021-05-04] MEDS: AMLODIPINE BESYLATE 5 MG TABLET PO SCH (08:24)
--- NOTE | 2021-05-04 09:21 | NUR ---
[facility] contact: TIARRA spoke with Sheryl at [facility] ([phone]) and inquired about pts coverage for placement. [facility] reported that [facility] covers SNF placement for the first 20 days then 21 days and after pt will have a copay of $50. [facility] reports that they do not cover Rehabilitation and/or Treatment Centers for alcohol use.
--- NOTE | 2021-05-04 10:05 | NUR ---
[facility] Contact: TIARRA met with Dietitian Assistant Guzman ([phone]) and [facility] Chaka ([phone]) regarding this pt who is considered a high risk as a with substance abuse issues and had access to weapons. SW was informed that the weapons have been taken and the Hot Billet Shear Operator and [facility] wanted to know about the pts discharge plan. TIARRA stated that she will update them if a SNF can be secured and overall what the discharge plan would be.
--- NOTE | 2021-05-04 12:31 | NUR ---
Contact from [facility] of mental health ornamental iron worker: SW was contacted by ornamental iron worker Bogdan ([phone]) from [facility] of mental [facility] about pt discharge plan and resources for pt. workers compensation examiner informed SW that pt is a and will assist pt with obtaining VA resources upon discharge. SW will keep case woe worker updated about pts discharge.
--- NOTE | 2021-05-04 14:20 | NUR ---
Point of contact: TIARRA attempted to call pts point of contact, no name give, ([phone]). SW reached an invalid phone number. TIARRA does not have any other point of contacts for pt.
--- NOTE | 2021-05-04 14:22 | NUR ---
Initial discharge plan: Pt is currently homeless. Per pt, he would like to go to a SNF or skilled nursing. SW will work with the pt and the MD regarding appropriate discharge planning. SW will form a safe and proper discharge.
[2021-05-04 16:00] VITALS: BP 147/73
[2021-05-04 20:08] VITALS: BP 155/89
[2021-05-04] MEDS: Z GUARD REMEDY 2 OZ OINT TP PRN (20:20)
[2021-05-04 22:19] VITALS: BP 133/82
--- NOTE | 2021-05-05 06:28 | NUR ---
RN NOTES: COVID -19 ANTIGEN TEST COLLECT, SEND TO THE LAB.
[2021-05-05 08:00] VITALS: BP 156/86
--- NOTE | 2021-05-05 08:29 | NUR ---
WOUND CARE CONSULT: PT SEEN FOR UPPER EXTREMITIES AND NOTED TO HAVE MULTIPLE AREAS OF DISCOLORATION BUT NO OPEN WOUNDS. WILL SEE PRN.
[2021-05-05] MEDS: SERTRALINE HCL 25 MG TABLET PO SCH (08:40)
[2021-05-05] MEDS: FOLIC ACID 1 MG TABLET PO SCH (08:40)
[2021-05-05] MEDS: THIAMINE HCL 100 MG TABLET PO SCH (08:40)
[2021-05-05] MEDS: AMLODIPINE BESYLATE 5 MG TABLET PO SCH (08:41)
--- NOTE | 2021-05-05 08:51 | NUR ---
Contact from [facility] department of mental health pillowcase cutter: [facility] pillow[facility] cutter Bogdan ([phone]) and informed him of pts discharge on May 05, [address] [facility]. [facility] services pillowcase cutter reported that he will follow up with pt at the facility next week.
--- NOTE | 2021-05-05 09:00 | NUR ---
RN NOTE- PT ALERT ORIENTED TO PERSON PLACE TIME PURPOSE, DENIES SI HI AH VH, PO INTAKE GOOD MED COMPLIANT WITHDRAWN ISOLATIVE
--- NOTE | 2021-05-05 09:02 | NUR ---
Dr. Carmona gave an order to D/C hold and D/C to [facility] and to follow up with psych and medical docotors. Psychiatrist ordered to continue same meds including prn. Addendum: 05/05/21 at 1217 by JOO HIDALGO RN Pt. wanted us to notify the sister Abril Bhakta. Contacted the sister at [phone] and call did not go thru.
--- NOTE | 2021-05-05 10:46 | NUR ---
Discharge Note: Pt will be discharged to [facility] located at [address] [place] [address]; . Pt will be discharged via [facility] at 1PM. There was no one to notify about this pts discharge. Upon discharge, the pt appears to be in a euthymic mood and presents with an anxious affect. Pt denies both suicidal and homicidal ideation as well as auditory and visual hallucinations. Pt appears to be alert and oriented x4 (time, place, self and situation). Pt appears to be groomed and appropriately dressed. Pt will be under the care of his psychiatrist, Dr. Daniels, located at [id number] [facility], [address] [place] [address]; and his wood milling machine hand, Dr. Moy, located at [address] [facility] [address] [place] [id number]; . The choice of vendor form and multidisciplinary exit care form were done, printed, signed, and given to the patient.
[2021-05-05] MEDS: CLONIDINE HCL 0.1 MG TABLET PO PRN (13:43)
--- NOTE | 2021-05-05 13:44 | NUR ---
RN NOTE- PT TO DC BUT AMBULANCE CREW CHECKED BP - 169/90. FACILITY REFUSED TO ACCEPT PT. CLONIDINE 0.2 MG GIVEN. RECHECK IN BIT. AMBULANCE RESCHEDULED FOR TWO HOURS
--- NOTE | 2021-05-05 15:10 | NUR ---
RN NOTE - BP- RECHECK 136/64 HR- 56
[2021-05-05 15:50] VITALS: BP 136/64
--- NOTE | 2021-05-05 17:09 | NUR ---
RN NOTE- PT DC TO [facility] AT THIS TIME VIA AMBULANCE AND GURNEY. PT IS ALERT ORIENTED TO PERSON PLACE PURPOSE. SOME CONFUSION PRESENT, MED COMPLIANT, CALM, DIRECTABLE AND INTERACTIVE. PT DENIES SI HI AH VH. SKIN INTACT. ECCHYMOTIC SPOTS TO BUE. PHOTOS TAKEN FOR CHART. CLOTHING ITEMS RETURNED. ID WRISTBAND REMOVED. ESCORTED OFF UNIT BY AMBULANCE STAFF
--- NOTE | 2021-05-08 13:57 | NUR ---
UR Note: TIARRA faxed progress and discharge notes to Rick Cespedes and Rick Henriquez with attn to Vale Rocha/ [place]; fax # [phone]
== END 2021-05-05 17:13 | DRG 881 ==
LOC: GPS 13:12
PROVIDERS: ADMIT Psychiatry & Neurology Psychiatry; ATTEND Nurse Practitioner Acute Care
DX: F32.9 Major depressive disorder, single episode, unspecified (principal); E43 Unspecified severe protein-calorie malnutrition; F10.229 Alcohol dependence with intoxication, unspecified; F10.24 Alcohol dependence with alcohol-induced mood disorder; R45.851 Suicidal ideations; I10 Essential (primary) hypertension; K76.0 Fatty (change of) liver, not elsewhere classified; F10.20 Alcohol dependence, uncomplicated; Y90.9 Presence of alcohol in blood, level not specified; Z91.81 History of falling; F29 Unspecified psychosis not due to a substance or known physiological condition; Z73.6 Limitation of activities due to disability; R27.8 Other lack of coordination; R53.1 Weakness; K70.10 Alcoholic hepatitis without ascites; F41.9 Anxiety disorder, unspecified; G31.84 Mild cognitive impairment of uncertain or unknown etiology; N28.1 Cyst of kidney, acquired; Z20.822 Contact with and (suspected) exposure to COVID-19
CPT/HCPCS: 36415; 80053-TC; 80061-TC; 82140-TC; 82962-TC; 87081-TC